=== PATIENT | male | born 1975 | race Caucasian/White ===

== ENCOUNTER 2018-08-07 08:06 | Day surgery (SDC) | payer BC, OTHER ==
--- NOTE | 2018-08-07 10:01 | PCM.PREANE ---
Preanesthetic Assessment - Anesthesia/Transfusion/Family Hx Anesthesia History: Prior Anesthesia Without Reaction Family History of Anesthesia Reaction: No Transfusion History: No Prior Transfusion(s) Intubation History: Unknown - Review of Systems General: No Symptoms Pulmonary: No Symptoms Cardiovascular: No Symptoms Gastrointestinal: Abdominal Pain, Hematochezia, Other (change in bowel habits) Neurological: No Symptoms Other: Reports: None - Physical Assessment O2 Sat by Pulse Oximetry: 99 Respiratory Rate: 15 Vital Signs: Last Vital Signs Temp 36.1 C 08/07/18 08:26 Pulse 68 08/07/18 08:26 Resp 15 08/07/18 08:26 BP 120/81 08/07/18 08:26 Pulse Ox 99 08/07/18 08:26 Height: 5 ft 8 in Weight: 89.811 kg ASA Class: 2 Mental Status: Alert & Oriented x3 Airway Class: Mallampati = 2 Dentition: Reports: Normal Dentition (small chip on front upper tooth) Thyro-Mental Finger Breadths: 3 Mouth Opening Finger Breadths: 2 ROM/Head Extension: Full Lungs: Clear to Auscultation, Normal Respiratory Effort Cardiovascular: Regular Rate, Regular Rhythm - Allergies Allergies/Adverse Reactions: Allergies Allergy/AdvReac Type Severity Reaction Status Date / Time No Known Allergies Allergy Verified 08/03/18 08:43 - Blood Blood Available: No - Anesthesia Plan Pre-Op Medication Ordered: None - Acknowledgements Anesthesia Type Planned: MAC Pt an Appropriate Candidate for the Planned Anesthesia: Yes Alternatives and Risks of Anesthesia Discussed w Pt/Guardian: Yes Pt/Guardian Understands and Agrees with Anesthesia Plan: Yes PreAnesthesia Questionnaire HEENT History: Reports: None Cardiovascular History: Reports: Hypertension Other Cardiovascular History: HTN in the past, Respiratory History: Reports: None Gastrointestinal History: Reports: GERD Genitourinary History: Reports: None Musculoskeletal History: Reports: None Neurological History: Reports: None Psychiatric History: Reports: None Endocrine/Metabolic History: Reports: Obesity/BMI 30+ Hematologic History: Reports: None Immunologic History: Reports: None Oncologic (Cancer) History: Reports: None Dermatologic History: Reports: None - Past Surgical History Head Surgeries/Procedures: Reports: None HEENT Surgical History: Reports: None Cardiovascular Surgical History: Reports: None Respiratory Surgical History: Reports: None GI Surgical History: Reports: Colonoscopy, EGD (5 years ago, esophageal dilatation performed) Male Surgical History: Reports: None Endocrine Surgical History: Reports: None Neurological Surgical History: Reports: None Musculoskeletal Surgical History: Reports: Arthroscopic Knee Oncologic Surgical History: Reports: None Dermatological Surgical History: Reports: None - SUBSTANCE USE Smoking Status *Q: Former Smoker Recreational Drug Use History: No - HOME MEDS Home Medications: Home Meds Pantoprazole Sodium [Protonix] 1 tab PO DAILY 08/03/18 [History] Sucralfate 1 tab PO QID 08/03/18 [History]
[2018-08-07] MEDS ORDERED: Midazolam 1 MG/ML 2 ML SDV ONE (11:52)
[2018-08-07] MEDS ORDERED: Propofol 200 MG/20 ML SDV ONE (11:52)
--- NOTE | 2018-08-07 12:40 | PCM.OPNOTE ---
- General Post-Op/Procedure Note Date of Surgery/Procedure: 08/07/18 Operative Procedure(s): Diagnostic EGD and colonoscopy Findings: Normal EGD, diverticulosis, grade 2 hemorrhoids Pre Op Diagnosis: Heartburn, BRBPR Post-Op Diagnosis: Normal EGD, diverticulosis, grade 2 hemorrhoids Anesthesia Technique: MAC Primary Surgeon: Brenda Weldon Condition: Good
--- NOTE | 2018-08-07 14:45 | OR ---
SURGEON: BRENDA WELDON MD DATE OF PROCEDURE: 08/07/2018 PREOPERATIVE DIAGNOSES: 1. Atypical chest pain. 2. Bright red bleeding per rectum. POSTOPERATIVE DIAGNOSES: 1. Atypical chest pain. 2. Diverticulosis. 3. Grade 2 hemorrhoids. PROCEDURE PERFORMED: Diagnostic esophagogastroduodenoscopy and colonoscopy. PRIMARY SURGEON: Endoscopist, Brenda Weldon MD. ANESTHESIA: MAC. INSTRUMENT USED: Olympus endoscope and colonoscope. EXTENT OF EXAM: To the second portion of duodenum, to the cecum. PREPARATION: Good. LIMITATIONS: None. INDICATION FOR EXAMINATION: The patient is a 42-year-old male who came to my clinic with a multitude of complaints. His biggest concern is an atypical chest pain along with a burning sensation. He has a history of previous EGD and possible balloon strictureplasty. He is also complaining of bright red bleeding per rectum. The decision was made to proceed with diagnostic EGD and colonoscopy. I discussed the procedures, expected perioperative course, and risks including bleeding, infection, or damage to surrounding structures including perforation. The patient verbalized understanding and wishes to proceed. PROCEDURE IN DETAIL: The patient was brought into the endoscopy suite and placed in a left lateral decubitus position. A time-out was completed verifying the patient's name, age, date of , allergies, and procedure to be performed. Monitored anesthesia care was induced and a bite block was placed in the patient's mouth. Continuous oxygen was provided via nasal cannula throughout the procedure. After adequate sedation was achieved, a well lubricated endoscope was placed into the patient's mouth and advanced under direct visualization to the second portion of duodenum. This appeared normal and a photograph was taken. The scope was then fully withdrawn while examining the color, texture, anatomy, and integrity of the mucosa of the upper GI tract. The duodenum appeared normal. The scope was brought in the stomach and a photograph was taken of the GE junction and pylorus. Both appeared normal. The gastric mucosa was free of inflammation or ulceration. Biopsies were taken of the gastric antrum, body, and fundus, and sent for histologic review and H. pylori testing. The scope was brought into the distal esophagus. A photograph was taken of the Z-line. This appeared normal. The distal esophagus had no signs of stricture or esophagitis. A biopsy was taken approximately 1 cm above the Z-line using a cold biopsy forceps and sent to pathology. The remainder of the esophagus appeared normal. The scope was removed and this portion of procedure terminated. A digital rectal exam was performed. This exam was within normal limits. A well lubricated colonoscope was inserted into the rectum and advanced under direct visualization to the level of the cecum. The cecum was identified by both visual and anatomic landmarks. A photograph was taken of the cecal cap as well as with the scope retroflexed within the cecum. The scope was then fully withdrawn while examining the color, texture, anatomy, and integrity of the mucosa from the cecum to the anal canal. The patient was found to have a couple scattered diverticula in the distal sigmoid colon, but there was no evidence of recent bleeding. The scope was brought into the rectum and retroflexed to allow visualization of the anal canal opening. The patient did have mildly enlarged hemorrhoids consistent with grade 2 hemorrhoidal disease. There was no evidence of recent bleeding or irritation. A photograph was taken. The scope was then straightened out and fully withdrawn. The cecum to anus time was 7 minutes. The patient tolerated the procedure well and was taken to PACU in stable condition. ENDOSCOPIC DIAGNOSES: 1. Atypical chest pain. 2. Diverticulosis. 3. Grade 2 hemorrhoids. RECOMMENDATIONS: The patient should continue his Protonix as ordered. I will follow up with him in clinic in 2 weeks to discuss the biopsy results from his stomach and any further workup for his chest pain. We also discussed the need for suppositories to be used for any rectal bleeding. The patient verbalized understanding. DARRYL EVERETT /[id number]
== END 2018-08-07 13:09 | disposition home or self-care (01) ==
LOC: MW.SDS 08:06
PROVIDERS: ATTEND Surgery
DX: R07.9 Chest pain, unspecified (principal); K57.31 Diverticulosis of large intestine without perforation or abscess with bleeding; K21.0 Gastro-esophageal reflux disease with esophagitis; K29.50 Unspecified chronic gastritis without bleeding; K64.1 Second degree hemorrhoids; E66.9 Obesity, unspecified; Z68.30 Body mass index [BMI] 30.0-30.9, adult; Z87.891 Personal history of nicotine dependence; Z79.899 Other long term (current) drug therapy
CPT/HCPCS: 43239; 45378; J2250; J2704; 88305; 88312